=== PATIENT | male | born 1950 ===

== ENCOUNTER 2017-12-21 07:00 | Inpatient (IN) | payer OTHER ==
[~2017-12-21] VITALS: Ht 160 cm; Wt 60.8 kg
[2017-12-21] MEDS ORDERED: PRILOSEC OTC20 MG PO (08:12)
[2017-12-21] MEDS ORDERED: TERAZOSIN HCL5 MG PO (08:12)
== END 2017-12-28 10:33 | disposition home or self-care (01) | DRG 708 ==
LOC: O/R 12-26 05:10 → SURH 12-26 05:10 → SURG 12-26 07:00 → SURH 12-26 12:18
PROVIDERS: Urology
PROC: 07TC0ZZ Resection of Pelvis Lymphatic, Open Approach (ICD-10-PCS; 2017-12-26)
PROC: 0VT00ZZ Resection of Prostate, Open Approach (ICD-10-PCS; principal; 2017-12-26 07:00)
DX: C61 Malignant neoplasm of prostate (principal)